=== PATIENT | male | born 2000 | race American Indian/Alaskan Native ===

== ENCOUNTER 2024-01-02 14:45 | Emergency (ER) | payer SELFPAY | END 2024-01-02 16:29 | disposition home or self-care (01) | LOC: JP.ED 14:45 | DX: S00.532A Contusion of oral cavity, initial encounter (principal); F17.210 Nicotine dependence, cigarettes, uncomplicated; Z88.1 Allergy status to other antibiotic agents; W22.8XXA Striking against or struck by other objects, initial encounter | CPT/HCPCS: 70486; 70486-26; 99283 ==

== ENCOUNTER 2025-05-01 05:51 | Emergency (ER) | payer SELFPAY | END 2025-05-01 06:36 | disposition home or self-care (01) | LOC: JP.ED 05:51 | DX: K08.89 Other specified disorders of teeth and supporting structures (principal); J45.909 Unspecified asthma, uncomplicated; E66.9 Obesity, unspecified; Z68.29 Body mass index [BMI] 29.0-29.9, adult; Z88.1 Allergy status to other antibiotic agents | CPT/HCPCS: 99283 ==